=== PATIENT | female | born 1970 | race Caucasian/White ===

== ENCOUNTER 2016-12-18 12:19 | Emergency (ER) | payer OTHER ==
[~2016-12-18] VITALS: Ht 157.5 cm; Wt 57.0 kg
[~2016-12-18 12:19] MED LIST: AMO500 PO; PHEN177S43 MT
[2016-12-18 12:25] VITALS: Ht 157.5 cm; Wt 57.0 kg
[2016-12-18] MEDS ORDERED: IBUP-1542 PO (14:27)
[2016-12-18] MEDS ORDERED: HYDR-906 PO (14:27)
[2016-12-18] MEDS ORDERED: UDROBDM PO (14:28)
[2016-12-18] MEDS ORDERED: OSLT75C PO (14:28)
--- NOTE | 2016-12-18 16:24 | ERD ---
ER Documentation Chief Complaint Date/Time DATE: 12/18/16 TIME: 16:21 Chief Complaint FLU LIKE SYMPTOMS; HEADACHE HPI This a 46 year old female who presents to the emergency department today complaining of 2 days of fever, cough, headache, body aches and feeling weak. States that 2 days ago she was spraying her area for cockroaches and states that she started getting symptoms after that time. Degenerative the history of HIV. Denies any vomiting or diarrhea. ROS All systems reviewed and are negative except as per history of present illness. Medications Home Meds Active Scripts Oseltamivir Phosphate* (Tamiflu*) 75 Mg Capsule, 75 MG PO BID for 5 Days, CAP Prov:INNA AVALOS PA-C 12/18/16 Guaifenesin-Dextromethorphan* (Robitussin* DM) 100MG/10MG/5ML Syrup, 10 ML PO Q4H Y for COUGH for 7 Days, ML Prov:INNA AVALOS PA-C 12/18/16 Ibuprofen* (Motrin*) 600 Mg Tab, 600 MG PO Q6, #30 TAB Prov:INNA AVALOS PA-C 12/18/16 Hydrocodone/Acetaminophen ([place] 5-325 Tablet) 1 Each Tablet, 1 TAB PO Q6H Y for PAIN, #20 TAB Prov:INNA AVALOS PA-C 12/18/16 Phenol* (Chloraseptic* [place]) 177 Ml [place].pump, 2 SPRAY MT Q2H Y for SORE THROAT, #1 BOTTLE Prov:NANETTE AMATO DO 12/01/15 Amoxicillin* (Amoxicillin*) 500 Mg Cap, 500 MG PO TID for 10 Days, CAP Prov:NANETTE AMATO DO 12/01/15 Allergies Allergies: Coded Allergies: No Known Allergy (Unverified , 11/14/14) PMhx/Soc History of Surgery: No Anesthesia Reaction: No Hx Neurological Disorder: No Hx Respiratory Disorders: No Hx Cardiac Disorders: No Hx Psychiatric Problems: No Hx Miscellaneous Medical Probl: Yes (bACK PAIN) Hx Alcohol Use: No Hx Substance Use: No Hx Tobacco Use: No Physical Exam Vitals Vital Signs Date Time Temp Pulse Resp B/P Pulse Ox O2 Delivery O2 Flow Rate FiO2 12/18/16 12:25 99.8 105 19 127/55 99 Physical Exam Const: No acute distress Head: Atraumatic Eyes: Normal Conjunctiva ENT: Ears TMs normal. Nose no drainage. Throat no erythema no exudate. Neck: Full range of motion..~ No meningismus. Resp: Clear to auscultation bilaterally. No absent breath sounds. No wheezing. Cardio: Regular rate and rhythm, no murmurs Abd: Soft, non tender, non distended. Normal bowel sounds Skin: No petechiae or rashes Back: No midline or flank tenderness Ext: No cyanosis, or edema Neur: Awake and alert. No gait ataxia Psych: Normal Mood and Affect Procedures/MDM This is a 46 old female who presents to the emergency department today complaining of flulike symptoms. Patient was seen and evaluated in [facility] and patient is afebrile and otherwise well-appearing. Her oxygen saturation is 99%. Do not feel that the patient requires laboratory work or imaging at this time. I have low suspicion for strep pharyngitis, peritonsillar abscess, retropharyngeal abscess, otitis media, PNA, sinusitis, abscess, meningitis, sepsis, or other acute infectious bacterial process. Patient was given a prescription for Tamiflu, [place] for severe headache, Motrin , Robitussin. At this time the patient is stable for discharge and outpatient management. They should follow up with their PCP in the next 1-2. They may return to the emergency department sooner if symptoms persist or worsen. Patient understood and agreed with the plan. Departure Diagnosis: Primary Impression: Influenza-like symptoms Condition: Fair Patient Instructions: Influenza (Adult) Additional Instructions: Call your primary care doctor TOMORROW for an appointment during the next 1-2 days.See the doctor sooner or return here if your condition worsens before your appointment time. Tamiflu for flulike symptoms [place] for severe headache or pain and body aches otherwise take Motrin or Tylenol or Naprosyn Robitussin for cough Stay well-hydrated INNA AVALOS PA-C Dec 18, 2016 16:24
== END 2016-12-18 14:37 | disposition home or self-care (01) ==
LOC: FTE 12:19 → E/R 14:37
DX: R50.9 Fever, unspecified (principal); R05 Cough; R51 Headache; R53.1 Weakness
CPT/HCPCS: 99284

== ENCOUNTER 2018-02-12 13:18 | Emergency (ER) | END 2018-02-12 13:46 | disposition home or self-care (01) ==